=== PATIENT | female | born 1990 | race Caucasian/White ===

== ENCOUNTER 2018-10-31 22:43 | Emergency (ER) | payer OTHER ==
[~2018-10-31] VITALS: Ht 154.9 cm; Wt 136.1 kg
[2018-10-31] MEDS ORDERED: CELEXA20 MG PO (22:54)
[2018-11-01 00:09] LABS: ABSOLUTE BASOPHILS 0.1 thou/uL (0.0-0.2); ABSOLUTE EOSINOPHILS 0.4 thou/uL (0.0-0.7); ABSOLUTE LYMPHOCYTES 1.7 thou/uL (0.8-5.3); ABSOLUTE MONOCYTES 0.5 thou/uL (0.0-1.2); ABSOLUTE NEUTROPHILS 4.8 thou/uL (1.6-8.1); BASOPHILS 1.5 %; EOSINOPHILS 4.9 %; HEMATOCRIT 35.4 % (37.0-47.0); HEMOGLOBIN 11.2 gm/dL (12.0-15.0); LYMPHOCYTES 22.8 %; MCH 22.8 pg (26.0-34.0); MCHC 31.6 g/dL (28.0-37.0); MCV 72.3 fL (80.0-100.0); MONOCYTES 6.6 %; MPV 7.1 fl. (7.2-11.1); NUCLEATED RBCS 0 /100WBC; PLATELET COUNT* 312 thou/uL (150-400); POLYS 64.2 %; RBC 4.89 mil/uL (4.20-5.00); RDW-CV 16.8 % (10.5-14.5); WBC 7.5 thou/uL (4.0-11.0)
[2018-11-01 00:19] LABS: ANION GAP 6 mmol/L (7-16); BUN 11 mg/dL (7-18); CALCIUM 10.1 mg/dL (8.5-10.1); CHLORIDE 101 mmol/L (98-107); CO2 29 mmol/L (21-32); GLUCOSE 105 mg/dL (70-99); POTASSIUM 3.5 mmol/L (3.5-5.1); SODIUM 136 mmol/L (136-145)
[2018-11-01 00:22] LABS: PROTIME 10.7 Seconds (9.20-11.50)
[2018-11-01 00:28] LABS: ALBUMIN 3.5 g/dL (3.4-5.0); ALKALINE PHOSPHATASE 84 U/L (46-116); SGOT 15 U/L (15-37); SGPT 31 U/L (30-65); TOTAL BILIRUBIN 0.4 mg/dL (<0.1-1.0); TOTAL PROTEIN 7.5 g/dL (6.4-8.2); TROPONIN-I LEVEL <0.06 ng/mL (<0.06)
[2018-11-01] MEDS ORDERED: TORADOL 10 MG T10 MG PO (01:21)
[2018-11-01 01:32] VITALS: BP 120/75
[2018-11-01 05:08] LABS: HYPOCHROMASIA 2+; MICROCYTES 2+
[2018-11-01 05:09] LABS: ANISOCYTOSIS 1+; POIKILOCYTOSIS Occasional
--- NOTE | 2018-11-01 16:29 | EKG ---
[place] [address] ELECTROCARDIOGRAM REPORT Name: HARLAN ROONEY Room: [facility]#: [id number] Admission: 10/31/18 Attend Phys: Discharge: 11/01/18 Date of : 88 Report #: [id number] THIS REPORT FOR: //name// [facility] ED Test Date: 2018-10-31 Test Time: 22:52:15 Pat Name: HARLAN ROONEY Department: Room: Gender: F [employer]: : 1990 Requested By: Uzma Mcmahan Order Number: [id number] MD: Jer Guerrero Measurements Intervals [place] Rate: 92 P: 35 IL: 147 QRS: 36 QRSD: 85 T: 8 QT: 337 QTc: 417 Interpretive Statements Sinus rhythm Low voltage, precordial leads Probable anteroseptal infarct, old Borderline T abnormalities, inferior leads No previous ECG available for comparison Electronically Signed On 11-01-2018 16:28:55 CDT by Jer Guerrero [email or web address] <ELECTRONICALLY SIGNED> By: Jer Guerrero MD, [facility] 11/01/18 1628 2252 225 Jer Guerrero MD, [facility] /EPI
== END 2018-11-01 01:33 | disposition home or self-care (01) ==
LOC: M.ERS 22:43
PROVIDERS: Personal Emergency Response Attendant
DX: R07.89 Other chest pain (principal); F41.9 Anxiety disorder, unspecified; Z91.048 Other nonmedicinal substance allergy status

== ENCOUNTER → 2020-07-10 | Outpatient (CLI) | payer BC ==
[~2020-07-10] MED LIST: CELEXA20 MG PO; TORADOL 10 MG T10 MG PO
== END ==
LOC: M.ULTRA 07:07
PROVIDERS: ATTEND Nurse Practitioner Family
DX: K80.20 Calculus of gallbladder without cholecystitis without obstruction (principal)